=== PATIENT | female | born 1980 | race African-American/Black ===

== ENCOUNTER 2016-12-31 17:29 | Emergency (ER) | payer SELFPAY | END 2016-12-31 18:57 | disposition home or self-care (01) | LOC: D.ER 17:29 | DX: M94.0 Chondrocostal junction syndrome [Tietze] (principal) ==

== ENCOUNTER 2017-08-05 10:22 | Emergency (ER) | payer SELFPAY ==
[2017-08-05 11:51] LABS: HCG URINE NEGATIVE (NEGATIVE)
[2017-08-05 12:06] LABS: APPEARANCE CLEAR (CLEAR); COLOR YELLOW (YELLOW)
[2017-08-05 12:07] LABS: BACTERIA FEW /hpf (NONE SEEN); BILIRUBIN NEGATIVE (NEGATIVE); EPITHELIAL CELLS 0-5 /hpf (0-5); GLUCOSE NEGATIVE (NEGATIVE); KETONE NEGATIVE (NEGATIVE); MUCUS <1+ /lpf (NONE SEEN); NITRITE NEGATIVE (NEGATIVE); PROTEIN NEGATIVE (NEGATIVE); RED CELLS - URINE OCC /hpf (0-5); SPECIFIC GRAVITY 1.005 (1.005-1.020); UROBILINOGEN NORMAL (NORMAL); WHITE CELLS - URINE OCC /hpf (0-5)
== END 2017-08-05 11:48 | disposition home or self-care (01) ==
LOC: D.ER 10:22
PROVIDERS: Emergency Medicine
DX: R10.9 Unspecified abdominal pain (principal); R19.7 Diarrhea, unspecified; F17.200 Nicotine dependence, unspecified, uncomplicated